=== PATIENT | male | born 1935 | race Caucasian/White ===

== ENCOUNTER 2016-10-13 19:04 | Observation (INO) ==
--- NOTE | 2016-10-13 19:22 | Emergency Department Note ---
Disposition Clinical Impression: Bladder spasm Disposition: Admitted As Inpatient Condition: Good General Adult HPI - General Chief complaint: ED Urogenital-Male Stated complaint: Urine Catheter plugged Time Seen by Provider: 10/13/16 19:21 Source: patient Limitations: no limitations - History of Present Illness Pain Scale: 10 - Related Data Home Medications Medication Instructions Recorded Confirmed Allopurinol [Zyloprim 300 MG] 300 mg PO DAILY 10/12/16 10/13/16 Cetirizine HCl [24Hour Allergy] 10 mg PO DAILY 10/12/16 10/13/16 Finasteride [Proscar] 5 mg PO DAILY 10/12/16 10/13/16 Losartan/Hydrochlorothiazide 1 tab PO DAILY 10/12/16 10/13/16 [Hyzaar 100-25 Tablet] Metoprolol [Lopressor] 25 mg PO BID 10/12/16 10/13/16 Multivit-Min/FA/Lycopen/Lutein 1 tab PO DAILY 10/12/16 10/13/16 [Centrum Silver Tablet] Pravastatin Sodium [Pravachol] 40 mg PO QPM 10/12/16 10/13/16 Tamsulosin [Flomax] 0.4 mg PO DAILY 10/12/16 10/13/16 Potassium Citrate [Urocit-K] 10 meq PO DAILY 10/13/16 10/13/16 Previous Rx's Medication Instructions Recorded Phenazopyridine [Pyridium] 200 mg PO TID PRN #20 tablet 10/14/16 Allergies Allergy/AdvReac Type Severity Reaction Status Date / Time hydrocodone AdvReac See Verified 10/13/16 19:16 Comments Past Medical History - Past Medical History Medical history: Reports: hypertension Psychiatric history: Reports: no psych history - Social History Smoking Status: Former smoker Smokeless Tobacco Status: No Alcohol use: Reports: none Drug use: Reports: none Physical Exam - General Limitations: no limitations General appearance: alert Course Vital Signs Temperature 98.0 F 10/13/16 19:12 Pulse Rate 87 10/13/16 19:12 Respiratory Rate 18 10/13/16 19:12 Blood Pressure 127/72 10/13/16 19:12 O2 Sat by Pulse Oximetry 96 10/13/16 19:12 Temperature 97.8 F 10/14/16 04:10 Pulse Rate 60 10/14/16 04:10 Respiratory Rate 15 10/14/16 04:10 Blood Pressure 116/54 10/14/16 04:10 O2 Sat by Pulse Oximetry 94 L 10/14/16 04:10 Oxygen Delivery Oxygen Delivery Room Air Medical Decision Making - Lab Data Result diagrams: 10/13/16 19:56 10/13/16 19:56 Lab Results 10/13/16 10/13/16 Range/Units 19:56 19:56 WBC 14.3 H (4.3-11.1) K/mcL RBC 4.07 L (4.19-5.50) M/mcL Hgb 13.0 (12.9-16.9) g/dL Hct 39.9 (37.5-50.1) % MCV 98.0 (83.0-100.0) fL MCH 31.9 (28.0-33.3) pg MCHC 32.6 (31.6-35.5) g/dL RDW 13.2 (11.5-14.5) % Plt Count 239 (140-400) K/mcL MPV 9.7 (9.4-12.4) fL Immature Gran % 0.3 (0-4) % Seg Neutrophils % 78.6 % Lymphocytes % 11.0 % Monocytes % 8.9 % Eosinophils % 0.6 % Basophils % 0.6 % Neutrophils # 11.3 H (1.6-8.9) K/mcL Lymphocytes # 1.6 (0.6-4.6) K/mcL Monocytes # 1.3 (0.0-1.3) K/mcL Eosinophils # 0.1 (0.0-0.6) K/mcL Basophils # 0.1 (0.0-0.2) K/mcL Sodium 142 (136-145) mEq/L Potassium 3.7 (3.5-4.5) mEq/L Chloride 106 (98-109) mEq/L Carbon Dioxide 27 (19-29) mEq/L BUN 16 (8-26) mg/dL Creatinine 1.07 (0.72-1.25) mg/dL Est GFR ( Amer) > 60 (> 60) Est GFR (Non-Af Amer) > 60 (> 60) BUN/Creatinine Ratio 15 (6-26) Glucose 114 H (70-99) mg/dL Calculated Osmolality 296 (280-300) Calcium 8.9 (8.6-10.8) mg/dL Attestation Statement - Attestation Attestation: I examined this patient and my medical decision-making was reviewed with the [employer]/PA/Advanced Practice Nurse/Resident Physician. I agree with the documented findings, disposition and treatment plan as described except to the extent set forth below. 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 He has an indwelling Mullen catheter. He states he wants me to speak with the urologist to be admitted as soon as possible.
--- NOTE | 2016-10-13 19:53 | Emergency Department Note ---
Disposition Clinical Impression: Bladder spasm Disposition: Admitted As Inpatient Condition: Undetermined Time of Disposition: 21:49 Male Urogenital HPI - General Chief complaint: ED Urogenital-Male Stated complaint: Urine Catheter plugged Time Seen by Provider: 10/13/16 19:21 Source: patient Mode of arrival: ambulatory Limitations: no limitations Nursing Notes Reviewed: Yes Vital Signs Reviewed: Yes - History of Present Illness HPI Narrative: 81-year-old male with recent TURP surgery performed yesterday arrives to [facility] emergency department complaining of dysuria and clots in his urine. The patient was recently discharged this morning and was sent home. He was instructed that if he was having a clots in his urine and was having difficulty urinating to come to the emergency department. The patient states he lives roughly an hour away and states that his last duration he had difficulty urinating due to what he thinks is a clot. The patient states he forced his urine through and it leaked around the catheter. The patient states that he had a little bit of relief of pain from that. The patient states that he has not passed any urine over the past hour. The patient has a leg bag and Mullen catheter in place. The patient denies any other complaints other than a slight amount of pubic pressure. Patient denies any other complaints at this time. Pt Subjective Complaint: dysuria Onset (ago): hour(s) (3) Duration: constant, gradually worsening Severity: mild Quality: aching Improves with: none Worsens with: none indwelling catheter Reports: hematuria, dysuria - Related Data Sexually active: No Home Medications Medication Instructions Recorded Confirmed Allopurinol [Zyloprim 300 MG] 300 mg PO DAILY 10/12/16 10/13/16 Cetirizine HCl [24Hour Allergy] 10 mg PO DAILY 10/12/16 10/13/16 Finasteride [Proscar] 5 mg PO DAILY 10/12/16 10/13/16 Losartan/Hydrochlorothiazide 1 tab PO DAILY 10/12/16 10/13/16 [Hyzaar 100-25 Tablet] Metoprolol [Lopressor] 25 mg PO BID 10/12/16 10/13/16 Multivit-Min/FA/Lycopen/Lutein 1 tab PO DAILY 10/12/16 10/13/16 [Centrum Silver Tablet] Pravastatin Sodium [Pravachol] 40 mg PO QPM 10/12/16 10/13/16 Tamsulosin [Flomax] 0.4 mg PO DAILY 10/12/16 10/13/16 Potassium Citrate [Urocit-K] 10 meq PO DAILY 10/13/16 10/13/16 Previous Rx's Medication Instructions Recorded HYDROcodone/Acet 5/325 mg [[place] 2 tab PO Q4HR PRN #10 tablet 10/13/16 5-325 mg] Allergies Allergy/AdvReac Type Severity Reaction Status Date / Time hydrocodone AdvReac See Verified 10/13/16 19:16 Comments Review of Systems: Review of Systems Constitutional: Denies fevers, chills, night sweats HEENT: Denies headache, blurry vision, eye pain, tinnitus, vertigo, sore throat , neck or thyroid masses Respiratory: Denies cough, sputum change, hemoptysis, dyspnea Cardiac: Denies chest pain, pressure, palpitations, dyspnea on exertion, pedal edema Gastrointestinal: Denies abdominal pain, changes in bowel habits, vomiting, nausea, Genitourinary: Admits to dysuria, hematuria, Denies nocturia, change in frequency, urgency, incontinence Neurologic: Denies headaches, dizziness, syncope, focalized weakness, paraesthesias, weakness Musculoskeletal: Denies back pain, joint pain, myalgias All systems ED: reviewed and negative except as stated. Past Medical History - Past Medical History Attestation: Yes The following information was validated with the patient. Source: patient Medical history: Reports: hypertension Surgical history: Reports: other (TURP) Psychiatric history: Reports: no psych history - Social History Smoking Status: Former smoker Smokeless Tobacco Status: No Alcohol use: Reports: none Drug use: Reports: none Physical Exam Physical Exam: General: Patient alert, no acute distress, not lethargic HEENT: Head normal inspection, atraumatic, PERRLA, oropharynx grossly intact and normal, trachea midline, no JVD Chest: Nontraumatic, nontender, normal chest rise CV: RRR with no murmurs, rubs, gallops Respiratory: Lungs clear to auscultation bilaterally, no rales, rhonchi, wheezes. Abdomen: Normal inspection, Normal bowel sounds 4 quadrants, mild suprapubic tenderness : Patient has indwelling catheter in place and a leg bag Extremities: Normal inspection, full range of motion, appropriate pulses, capillary refill under 2 seconds Neurological: Patient alert and oriented 3, cranial nerves II through XII grossly intact, GCS 15 Skin: Warm, intact, no rashes noted - General Limitations: no limitations General appearance: alert Course - Reevaluation(s) Reevaluation #1: Patient's urinary catheter was flushed and suctioned numerous times in 2 different ports which revealed no release of urine or fluid. There was roughly 10 mL that return on initial flushing. There was a small blood clot that was within this fluid. We spoke with Dr. Khanna in urology who stated that he will be coming in to see the patient. Time: 20:48 - Consultations Consultation #1: Spoke with Dr. Khanna in urology who irrigated the patient's bladder. He thinks that it may be a bladder spasm. The patient is adamant that he be admitted. Dr. Khanna will be admitting the patient to the hospital. Time: 21:48 Vital Signs Temperature 98.0 F 10/13/16 19:12 Pulse Rate 87 10/13/16 19:12 Respiratory Rate 18 10/13/16 19:12 Blood Pressure 127/72 10/13/16 19:12 O2 Sat by Pulse Oximetry 96 10/13/16 19:12 Temperature 98.0 F 10/13/16 19:12 Pulse Rate 87 10/13/16 19:12 Respiratory Rate 18 10/13/16 19:12 Blood Pressure 127/72 10/13/16 19:12 O2 Sat by Pulse Oximetry 96 10/13/16 19:12 Oxygen Delivery Oxygen Delivery Room Air Urogenital-Male - Lab Data Result diagrams: 10/13/16 19:56 10/13/16 19:56 Lab Results 10/13/16 10/13/16 Range/Units 19:56 19:56 WBC 14.3 H (4.3-11.1) K/mcL RBC 4.07 L (4.19-5.50) M/mcL Hgb 13.0 (12.9-16.9) g/dL Hct 39.9 (37.5-50.1) % MCV 98.0 (83.0-100.0) fL MCH 31.9 (28.0-33.3) pg MCHC 32.6 (31.6-35.5) g/dL RDW 13.2 (11.5-14.5) % Plt Count 239 (140-400) K/mcL MPV 9.7 (9.4-12.4) fL Immature Gran % 0.3 (0-4) % Seg Neutrophils % 78.6 % Lymphocytes % 11.0 % Monocytes % 8.9 % Eosinophils % 0.6 % Basophils % 0.6 % Neutrophils # 11.3 H (1.6-8.9) K/mcL Lymphocytes # 1.6 (0.6-4.6) K/mcL Monocytes # 1.3 (0.0-1.3) K/mcL Eosinophils # 0.1 (0.0-0.6) K/mcL Basophils # 0.1 (0.0-0.2) K/mcL Sodium 142 (136-145) mEq/L Potassium 3.7 (3.5-4.5) mEq/L Chloride 106 (98-109) mEq/L Carbon Dioxide 27 (19-29) mEq/L BUN 16 (8-26) mg/dL Creatinine 1.07 (0.72-1.25) mg/dL Est GFR ( Amer) > 60 (> 60) Est GFR (Non-Af Amer) > 60 (> 60) BUN/Creatinine Ratio 15 (6-26) Glucose 114 H (70-99) mg/dL Calculated Osmolality 296 (280-300) Calcium 8.9 (8.6-10.8) mg/dL
[2016-10-13 20:03] LABS: Basophils # 0.1 K/mcL (0.0-0.2); Basophils % 0.6 %; Eosinophils # 0.1 K/mcL (0.0-0.6); Eosinophils % 0.6 %; Hematocrit 39.9 % (37.5-50.1); Immature Granulocytes % 0.3 % (0-4); Lymphocytes # 1.6 K/mcL (0.6-4.6); Mean Corpuscular HGB Conc 32.6 g/dL (31.6-35.5); Mean Corpuscular Hemoglobin 31.9 pg (28.0-33.3); Mean Platelet Volume 9.7 fL (9.4-12.4); Monocytes # 1.3 K/mcL (0.0-1.3); Monocytes % 8.9 %; Neutrophils # 11.3 K/mcL (1.6-8.9); Platelet Count 239 K/mcL (140-400); Red Blood Count 4.07 M/mcL (4.19-5.50); Red Cell Distribution Width 13.2 % (11.5-14.5); Segmented Neutrophils % 78.6 %
[2016-10-13 20:19] LABS: BUN/Creatinine Ratio 15 (6-26); Blood Urea Nitrogen 16 mg/dL (8-26); Calcium 8.9 mg/dL (8.6-10.8); Carbon Dioxide 27 mEq/L (19-29); Chloride 106 mEq/L (98-109); Glucose 114 mg/dL (70-99); Osmolality,Calculated 296 (280-300); Potassium 3.7 mEq/L (3.5-4.5); Sodium 142 mEq/L (136-145); eGFR For African Americans > 60 (> 60); eGFR For Non-African Americans > 60 (> 60)
[2016-10-13] MEDS ORDERED: Ondansetron 4 MG/2 ML VIAL IVP PRN (21:47)
[2016-10-13] MEDS ORDERED: *HR* Belladonna Alkaloids/Opium 30 MG RECTAL SUPPOSITORY RC PRN (21:47)
[2016-10-13] MEDS ORDERED: *HR* Morphine 2 MG/ML SYRINGE IVP PRN (21:47)
[2016-10-13] MEDS ORDERED: Naloxone 0.4 MG/ML INJ IVP PRN (21:47)
[2016-10-13] MEDS ORDERED: Hyoscyamine SL 0.125 MG TAB.SUBL SL PRN (21:47)
--- NOTE | 2016-10-13 21:54 | Urology History & Physical ---
Date of Encounter: 10/13/16 Time of Encounter: 21:51 Assessment and Plan (1) Clot retention of urine Current Visit: Yes Status: Acute History seems consistent with clot retention at home however the catheter seems to be irrigating fairly easy in the emergency room. Patient lives an hour away is concerned about developing recurrent catheter issues at home. We will admit to the hospital for observation. IV fluids, bladder spasm medication. I do not plan on starting CBI as there is no significant hematuria. We will check patient in the morning and consider catheter removal if the urine is clear (2) Bladder spasm Current Visit: Yes Status: Acute Levsin sublingual History of Present Illness Chief complaint: Catheter not draining HPI: Mr. Schaefer is a 81 year old male postop day #1 from a TURP and cystolitholapaxy. Discharge in the hospital today with catheter in place. States when he got home the urine looked a little more bloody and he began to have bladder spasms. Bloody urine was "spraying "around the catheter and the catheter did not appear to be draining. There was difficulty with catheter irrigation in the emergency room. Past Med Surg Social Fam HX - Past Medical History Medical history: hypertension Psychiatric history: no psych history - Past Surgical History Surgical History: other (TURP) - Social History Smoking Status: Former smoker Smokeless Tobacco Status: No Alcohol use: none Drug use: none Medications and Allergies Allopurinol [Zyloprim 300 MG] 300 mg PO DAILY 10/12/16 [History] Cetirizine HCl [24Hour Allergy] 10 mg PO DAILY 10/12/16 [History] Finasteride [Proscar] 5 mg PO DAILY 10/12/16 [History] Losartan/Hydrochlorothiazide [Hyzaar 100-25 Tablet] 1 tab PO DAILY 10/12/16 [ History] Metoprolol [Lopressor] 25 mg PO BID 10/12/16 [History] Multivit-Min/FA/Lycopen/Lutein [Centrum Silver Tablet] 1 tab PO DAILY 10/12/16 [ History] Pravastatin Sodium [Pravachol] 40 mg PO QPM 10/12/16 [History] Tamsulosin [Flomax] 0.4 mg PO DAILY 10/12/16 [History] HYDROcodone/Acet 5/325 mg [[place] 5-325 mg] 2 tab PO Q4HR PRN #10 tablet [Rx] Potassium Citrate [Urocit-K] 10 meq PO DAILY 10/13/16 [History] Allergies hydrocodone Adverse Reaction (Verified 10/13/16 19:16) See Comments constipation Review of Systems - Constitutional no chills, no fever(s) Exam Initial Vital Signs Temp Pulse Resp BP Pulse Ox 98.0 F 87 18 127/72 96 10/13/16 19:12 10/13/16 19:12 10/13/16 19:12 10/13/16 19:12 10/13/16 19:12 - General physical appearance Present: well developed, no distress - Eyes Present: PERRL - ENT Present: normal nares - Neck Present: no masses - Respiratory Present: normal respiratory effort - Abdomen Abdomen: Present: soft - Genitourinary normal penis with no external lesions - Neurologic Absent: disoriented, confused - Additional Findings Three-way Mullen catheter in place. Draining light hematuric urine in the tubing on my arrival. I was able to irrigate with approximately 240 mL of normal saline. Had return of clear irrigation fluid and had no evidence of large clot retention. Small clot and debris returned but nothing significant. I washed the catheter for an additional 10-15 minutes and it was draining clear fluid without significant hematuria. Urology Results - Labs 10/13/16 19:56 10/13/16 19:56 Abnormal lab results WBC 14.3 K/mcL (4.3-11.1) H 10/13/16 19:56 RBC 4.07 M/mcL (4.19-5.50) L 10/13/16 19:56 Neutrophils # 11.3 K/mcL (1.6-8.9) H 10/13/16 19:56 Glucose 114 mg/dL (70-99) H 10/13/16 19:56 All other labs normal.
[2016-10-13] MEDS ORDERED: 0.9 % Sodium Chloride 1,000 ML IVC SCH (22:00)
[2016-10-13] MEDS: *HR* OxyCODONE/APAP 5/325 TABLET PO PRN (23:49)
[2016-10-14] MEDS: *HR* OxyCODONE/APAP 5/325 TABLET PO PRN (04:13)
--- NOTE | 2016-10-14 06:50 | Discharge Summary ---
Date of Encounter: 10/14/16 Time of Encounter: 06:48 - Discharge Diagnosis (1) Clot retention of urine Priority: Primary Status: Resolved (2) Bladder spasm Priority: Secondary Status: Resolved - Discharge Medications Prescriptions: Phenazopyridine [Pyridium] 200 mg PO TID PRN #20 tablet PRN Reason: burning with urination Home Medications: Allopurinol [Zyloprim 300 MG] 300 mg PO DAILY 10/12/16 [History] Cetirizine HCl [24Hour Allergy] 10 mg PO DAILY 10/12/16 [History] Finasteride [Proscar] 5 mg PO DAILY 10/12/16 [History] Losartan/Hydrochlorothiazide [Hyzaar 100-25 Tablet] 1 tab PO DAILY 10/12/16 [ History] Metoprolol [Lopressor] 25 mg PO BID 10/12/16 [History] Multivit-Min/FA/Lycopen/Lutein [Centrum Silver Tablet] 1 tab PO DAILY 10/12/16 [ History] Pravastatin Sodium [Pravachol] 40 mg PO QPM 10/12/16 [History] Tamsulosin [Flomax] 0.4 mg PO DAILY 10/12/16 [History] Potassium Citrate [Urocit-K] 10 meq PO DAILY 10/13/16 [History] Phenazopyridine [Pyridium] 200 mg PO TID PRN #20 tablet 10/14/16 [Rx] Allergies/Adverse Reactions: Allergies hydrocodone Adverse Reaction (Verified 10/13/16 19:16) See Comments constipation Date of admission: 10/13/16 21:43 Primary care physician: Hector Rao MD Discharging clinician: Calvin Khanna Anticipated date of discharge: 10/14/16 - Patient Status Disposition: Home, Self-Care Condition: Good Functional capacity at discharge: independent ambulation Overall status at discharge: patient is progressing back to baseline - Discharge Instructions Follow Up With: Hector Rao MD [Primary Care Provider] - Adam Cornell MD [Partnered Physician] - (Keep scheduled appointment with Dr. Cornell next week) Additional Instructions: Expect urgency, frequency, burning on urination, light blood in the urine and or small clots. This is normal. Call if symptoms are excessive, continuous dark bloody urine, inability to urinate. Call if fever over 101 Avoid heavy lifting, heavy activity, or straining. - Diet and Activity Activity: other Diet: advance to your usual diet - Hospital Course Hospital course: Mr. Schaefer is a 81 year old male admitted last night for possible clot retention after emergency room visit. Urine is remained clear overnight without CBI. Patient has had no further bladder spasms. No issues with catheter drainage. Vital signs stable. Catheter removed this morning. Discharge if successful voiding trial - Time Spent with Patient Total time spent providing and/or coordinating discharge services: Less than 30 minutes Exam Initial Vital Signs Temp Pulse Resp BP Pulse Ox 98.0 F 87 18 127/72 96 10/13/16 19:12 10/13/16 19:12 10/13/16 19:12 10/13/16 19:12 10/13/16 19:12 - General physical appearance Present: well developed, no distress - Additional Findings Clear urine off of CBI
[2016-10-14 07:40] VITALS: BP 88/46
[2016-10-14] MEDS ORDERED: Loratadine 10 MG TABLET PO SCH (09:00)
[2016-10-14] MEDS ORDERED: Losartan/HCTZ 50-12.5 TABLET PO SCH (09:00)
[2016-10-14] MEDS ORDERED: Finasteride 5 MG TABLET PO SCH (09:00)
[2016-10-14] MEDS ORDERED: Potassium Citrate 10 MEQ TABLET.ER PO SCH (09:00)
== END 2016-10-14 11:15 | disposition home or self-care (01) ==
LOC: EMEROO 19:04 → 3BNU 19:04
PROVIDERS: ADMIT Urology; ATTEND Urology